=== PATIENT | female | born 1995 | race African-American/Black ===

== ENCOUNTER 2018-01-27 19:06 | Outpatient (CLI) | payer OTHER | END 2018-01-27 21:15 | disposition home or self-care (01) | LOC: M LDO 19:06 | DX: O47.03 False labor before 37 completed weeks of gestation, third trimester (principal); Z3A.30 30 weeks gestation of pregnancy | CPT/HCPCS: 59025 ==

== ENCOUNTER 2018-02-12 19:54 | Outpatient (CLI) | payer OTHER | END 2018-02-12 21:10 | disposition home or self-care (01) | LOC: M LDO 19:54 | DX: O26.893 Other specified pregnancy related conditions, third trimester (principal); Z3A.32 32 weeks gestation of pregnancy; R87.612 Low grade squamous intraepithelial lesion on cytologic smear of cervix (LGSIL) | CPT/HCPCS: 59025 ==

== ENCOUNTER 2018-03-30 15:39 | Outpatient (CLI) | payer OTHER | END 2018-03-30 17:00 | disposition home or self-care (01) | LOC: M LDO 15:39 | DX: O47.1 False labor at or after 37 completed weeks of gestation (principal); Z3A.39 39 weeks gestation of pregnancy; Z14.8 Genetic carrier of other disease | CPT/HCPCS: 59025 ==

== ENCOUNTER 2018-03-30 20:14 | Inpatient (IN) | payer OTHER ==
[2018-03-30] MEDS ORDERED: LR 1,000 ML IV (21:03)
[2018-03-30] MEDS ORDERED: OXYTOCIN 30 UNITS IN 0.9% NaCl 500ML IV BAG (J2590) As Ordered (22:09)
[2018-03-30 22:20] LABS: HEMATOCRIT 34.1 % (36.0-47.0); HEMOGLOBIN 11.6 g/dl (12.0-15.5); MEAN CORPUSCULAR HEMOGLOBIN 26.5 pg (27.0-33.0); PLATELET COUNT, AUTOMATED 225 10^3/uL (150-450); RED BLOOD COUNT 4.37 10^6/uL (4.00-5.40); RED CELL DISTRIBUTION WIDTH 14.4 % (11.5-14.5); WHITE BLOOD COUNT 16.8 10^3/uL (4.0-10.0)
[2018-03-30] MEDS ORDERED: OXYTOCIN DRIP 30 UNITS in APPROPRIATE DILUENT 1 EA IV (22:52)
[2018-03-30] MEDS ORDERED: DIBUCAINE 1% OINTMENT 30GM TOP (23:00)
[2018-03-30] MEDS ORDERED: DOCUSATE SODIUM 100 MG CAP PO (23:00)
[2018-03-30] MEDS ORDERED: MEASLES,MUMPS,RUBELLA VACCINE INJ (MMR-II) (90707) SC (23:00)
[2018-03-30] MEDS ORDERED: ACETAMINOPHEN 500 MG TAB PO (23:00)
[2018-03-30] MEDS ORDERED: RHOGAM 300 MCG (1500 IU) INJ (J2790) IM (23:00)
[2018-03-30] MEDS ORDERED: MOM 30ML SUSPENSION UDC PO (23:00)
[2018-03-30] MEDS ORDERED: OXYTOCIN INJ 10 UNITS/ML VIAL (J2590) IV (23:00)
[2018-03-30] MEDS ORDERED: METHYLERGONOVINE MALEATE 0.2 MG TAB PO (23:00)
[2018-03-30] MEDS ORDERED: ANUSOL HC CREAM 30GM TOP (23:00)
[2018-03-30 23:50] LABS: CORD GAS ABE A -5.6; CORD GAS ABE V -6.2; CORD GAS HCO3 A 21.1 MEQ/L; CORD GAS HCO3 V 19.2 MEQ/L; CORD GAS O2 SAT A 62.6 %; CORD GAS O2 SAT V 84.9 %; CORD GAS PCO2 A 45.4 mmHg; CORD GAS PCO2 V 37.7 mmHg; CORD GAS PH A 7.285 UNITS; CORD GAS PH V 7.324 UNITS; CORD GAS PO2 A 29.4 mmHg; CORD GAS PO2 V 42.5 mmHg; CORD GAS SBC A 19.2 MEQ/L; CORD GAS SBC V 19.2 MEQ/L; CORD GAS TCO2 A 22.5 MEQ/L; CORD GAS TCO2 V 20.3 MEQ/L
[2018-03-31] MEDS: LACTATED RINGER'S 1000 ML IV (00:30)
[2018-03-31] MEDS ORDERED: OXYTOCIN INJ 10 UNITS/ML VIAL (J2590) As Ordered (05:12)
[2018-03-31] MEDS: IBUPROFEN 800 MG TAB PO ×2 (06:57→21:05)
[2018-03-31 06:58] LABS: HEMATOCRIT 30.8 % (36.0-47.0); HEMOGLOBIN 10.7 g/dl (12.0-15.5); MEAN CORPUSCULAR HEMOGLOBIN 26.6 pg (27.0-33.0); MEAN CORPUSCULAR HGB CONC 34.7 g/dl (32.0-36.5); MEAN CORPUSCULAR VOLUME 76.4 fl (80.0-96.0); PLATELET COUNT, AUTOMATED 183 10^3/uL (150-450); RED BLOOD COUNT 4.03 10^6/uL (4.00-5.40); RED CELL DISTRIBUTION WIDTH 14.5 % (11.5-14.5); WHITE BLOOD COUNT 20.2 10^3/uL (4.0-10.0)
[2018-03-31] MEDS: PRENATAL VITAMINS CHEWABLE TABLET PO (08:36)
[2018-04-01] MEDS: PRENATAL VITAMINS CHEWABLE TABLET PO (09:03)
== END 2018-04-01 12:50 | disposition home or self-care (01) | DRG 775 ==
LOC: M LDO 20:14 → M OBS 03-31 00:38 → M LDI 21:05
PROVIDERS: Obstetrics & Gynecology
PROC: 10E0XZZ Delivery of Products of Conception, External Approach (ICD-10-PCS; principal; 2018-03-30)
PROC: 10907ZC Drainage of Amniotic Fluid, Therapeutic from Products of Conception, Via Natural or Artificial Opening (ICD-10-PCS; 2018-03-30)
DX: O64.5XX0 Obstructed labor due to compound presentation, not applicable or unspecified (principal); Z37.0 Single live birth; Z3A.39 39 weeks gestation of pregnancy; Z91.048 Other nonmedicinal substance allergy status